=== PATIENT | female | born 1960 | race Caucasian/White ===

== ENCOUNTER 2017-03-30 12:30 | Observation (INO) | payer BC, OTHER ==
[2017-03-30 13:11] LABS: Hemoglobin 14.6 g/dL (12.0-16.0); Mean Corpuscular HGB CONC 32.7 g/dL (32.0-36.0); Mean Corpuscular Hemoglobin 30.2 pg (27.0-31.0); Mean Corpuscular Volume 92.3 fl (81.0-99.0); Mean Platelet Volume 7.5 fL (7.4-10.4); Platelet Count 258 thou/uL (130-400); RBC Distribution Width 12.7 % (11.5-14.5); Red Blood Cell (RBC) Count 4.83 mill/uL (4.20-5.40); White Blood Cell (WBC) Count 6.8 thou/uL (4.8-10.8)
--- NOTE | 2017-03-30 13:17 | RAD ---
1 VIEW CHEST: Date: 03/30/17 CLINICAL HISTORY: Cardiac palpitations, tachycardia. FINDINGS: The cardiac silhouette is accentuated by portable technique. There is no lobar consolidation, effusio n, or discrete pneumothorax. Osseous structures reveal no acute findings. IMPRESSION: No focal consolidation. POS: [facility]
[2017-03-30 13:32] LABS: ALT (SGPT) 13 U/L (8-55); AST (SGOT) 17 U/L (5-34); Alkaline Phosphatase 132 U/L (40-150); Anion Gap 12 mmol/L (10-20); BUN (Urea Nitrogen) 12 mg/dL (9.8-20.1); Bilirubin, Total 0.3 mg/dL (0.2-1.2); CK (CPK) 58 U/L (29-168); Calc. Creatinine Clearance 0 mL/min (70-130); Calcium 9.3 mg/dL (7.8-10.44); Carbon Dioxide 25 mmol/L (22-29); Chloride 104 mmol/L (98-107); Estimated GFR-MDRD 75; Globulin 3.3 g/dL (2.4-3.5); Glucose 92 mg/dL (70-105); Lipase 36 U/L (8-78); Magnesium 2.5 mg/dL (1.6-2.6); Potassium 4.3 mmol/L (3.5-5.1); Protein, Total 7.3 g/dL (6.0-8.3); Sodium 137 mmol/L (136-145)
[2017-03-30 13:33] LABS: Band 3 % (5-11); Lymphocytes 15 % (21-51); MDiff Complete? YES; Monocytes 5 % (0-10); Neutrophil 70 % (42-75); PLT Morphology Comment Appears Adequate; RBC Morphology Normal; Reactive Lymphocytes 7 % (0-10)
[2017-03-30 13:34] LABS: CKMB 1.4 ng/mL (0-6.6); Troponin I Less than 0.010 ng/mL (< 0.028)
[2017-03-30] MEDS ORDERED: Docusate 100 MG CAP PO PRN (14:59)
[2017-03-30] MEDS ORDERED: Acetaminophen 325 MG TAB PO PRN (14:59)
[2017-03-30] MEDS ORDERED: Senokot 8.6 MG TAB PO PRN (14:59)
[2017-03-30] MEDS ORDERED: Sodium Chloride 0.9% 1,000 ML IV SCH (15:15)
--- NOTE | 2017-03-30 15:23 | PDOC.FPRHP ---
- History of Present Illness Chief Complaint: chest pain History of Present Illness: This is a 56 yo f with pmhx of GERD and anxiety who presents with chest pain. Said pain occurred when she was working today. Said it felt like a stabbing pain. [place] heart palpitations. Said it radiated to her back left shoulder. Did not radiate down her arm or up her jaw. rated pain at 9. Says it lasted for a few minutes. Says she got the pain and sat down and eventually it went away. Reported having increased SOB as well during the episode. Said she had 1 other episode like this 1 week ago. Again it was a sharp stabbing pain. Pt denied any headache, dizziness, lightheadness. Denied any n/v/d/c. Pt denied any fever or chills. Denies any recent illness or cough. Pt denies any recent trauma or like she pulled a muscle. 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 Pt says she has never had anything like this before. Denies any increased stress or anxiety. Pt states that she had one other episode of palpitations while down in the ER. Pt also reports having some mild leg swelling in her R. leg recently. Denies any redness. reports having some pain. Denies any recent trauma A ED Course: Aspirin - Allergies/Adverse Reactions Allergies Allergy/AdvReac Type Severity Reaction Status Date / Time Penicillins Allergy Mild Nausea Verified 08/14/12 19:37 Sulfa (Sulfonamide Allergy Mild Verified 08/14/12 19:37 Antibiotics) - Home Medications Medication Instructions Recorded Confirmed Type Lorazepam [Ativan] 1 mg PO DAILY 08/14/12 03/30/17 History Omeprazole 20 mg PO DAILY 08/14/12 03/30/17 History Baclofen [Baclofen] 10 mg PO HS PRN 03/30/17 03/30/17 History - History PMHx:GERD PSHx: orthopedic surgery, right foot surgery for neuromas, back surgery for tumor from fall, second toe FHx: Father-CAD, Mom-Cancer, Brothe- Esophageal Cancer 23yo Social:Smokes a cigarrette 1 a month, alcohol, drug use - Review of Systems General: denies: fever/chills, weight/appetite/sleep changes, night sweats, fatigue Eyes: denies: eye pain, vision changes ENT: denies: nasal congestion, rhinorrhea Respiratory: reports: shortness of breath. denies: cough, congestion, exercise intolerance Cardiovascular: reports: chest pain, palpitation, edema. denies: paroxysmal nocturnal dyspnea, orthopnea Gastrointestinal: denies: nausea, vomiting, diarrhea, constipation, abdominal pain, GI bleeding Genitourinary: denies: incontinence, dysuria, polyuria, discharge Skin: denies: rashes, lesions, jaundice, itching Musculoskeletal: denies: pain, tenderness, stiffness, swelling, arthritis/ arthralgias Neurological: denies: numbness, syncope, seizure, weakness Psychological: reports: anxiety. denies: depression - Vital signs BP: [127/74] HR: [77] RR: [23] Tmax: [98.3] Pox: [97]% on [RA] Wt: [] - Physical Exam Constitutional: NAD, awake, alert and oriented, well developed -Constitutional: obese HEENT: normocephalic and atraumatic, PERRLA Neck: supple, no LAD, no JVD, no thyromegaly, no bruits -Chest: Very tender to palpation along the chest Heart: normal S1/S2, no murmurs/rubs/gallops, pulses present, no edema Lungs: CTAB, no respiratory distress, good air movement, no rales/rhonchi, no wheezing Abdomen: soft, non-tender, bowel sounds present, no masses/distention Musculoskeletal: normal structure, normal tone -Musculoskeletal: Pain on palpation of R. leg when squeezing it. No redness noted. No swelling noted Neurological: no focal deficit Skin: no rash/lesions Psychiatric: normal mood and affect FMR H&P: Results - Labs Result Diagrams: 03/30/17 12:54 03/30/17 12:54 Lab results: WBC 6.8 thou/uL (4.8-10.8) 03/30/17 12:54 Hgb 14.6 g/dL (12.0-16.0) 03/30/17 12:54 Hct 44.6 % (36.0-47.0) 03/30/17 12:54 MCV 92.3 fl (81.0-99.0) 03/30/17 12:54 Plt Count 258 thou/uL (130-400) 03/30/17 12:54 Band Neuts % (Manual) 3 % (5-11) L 03/30/17 12:54 Sodium 137 mmol/L (136-145) 03/30/17 12:54 Potassium 4.3 mmol/L (3.5-5.1) 03/30/17 12:54 Chloride 104 mmol/L (98-107) 03/30/17 12:54 Carbon Dioxide 25 mmol/L (22-29) 03/30/17 12:54 BUN 12 mg/dL (9.8-20.1) 03/30/17 12:54 Creatinine 0.79 mg/dL (0.6-1.1) 03/30/17 12:54 Glucose 92 mg/dL (70-105) 03/30/17 12:54 Calcium 9.3 mg/dL (7.8-10.44) 03/30/17 12:54 Total Bilirubin 0.3 mg/dL (0.2-1.2) 03/30/17 12:54 AST 17 U/L (5-34) 03/30/17 12:54 ALT 13 U/L (8-55) 03/30/17 12:54 Alkaline Phosphatase 132 U/L (40-150) 03/30/17 12:54 Creatine Kinase 58 U/L (29-168) 03/30/17 12:54 CK-MB (CK-2) 1.4 ng/mL (0-6.6) 03/30/17 12:54 B-Natriuretic Peptide 41.6 pg/mL (0-100) 03/30/17 12:54 Serum Total Protein 7.3 g/dL (6.0-8.3) 03/30/17 12:54 Albumin 4.0 g/dL (3.5-5.0) 03/30/17 12:54 Lipase 36 U/L (8-78) 03/30/17 12:54 - EKG Interpretation EKG: Normal EKG - Radiology Interpretation Chest x-ray Status: image reviewed by me, report reviewed by me (No focal consolidation) FMR H&P: A/P - Problem List (1) Chest pain Current Visit: Yes Onset Date: ~03/30/17 Status: Acute Code(s): R07.9 - CHEST PAIN, UNSPECIFIED (2) GERD (gastroesophageal reflux disease) Current Visit: Yes Status: Acute Code(s): K21.9 - GASTRO-ESOPHAGEAL REFLUX DISEASE WITHOUT ESOPHAGITIS (3) Anxiety Current Visit: Yes Status: Acute Code(s): F41.9 - ANXIETY DISORDER, UNSPECIFIED - Plan 56 yo f with pmhx gerd present with chest pain admitted for typical chest pain. Atypical Chest Pain -Pt having stabbing chest pain on exertion. Initial troponin negative. Pt had pain on palpation of chest. Likely chostochondritis. Will px tylenol PRN. May benefit from flexeril -Trend trops 2 more times. -Tele obs overnight. Will get EKG if has any more episodes palpitations -Nitro PRN, Aspirin -FLP, Mg, Phos, TSH pending -NPO@midnight. Plan for stress test in the morning. GERD -Has long hx of gerd. Continue home meds. May consider upping her omperazole to BID dosing. Pain could be GERD related. Had EGD 10-15 years ago. -Recommend get EGD outpatient -Avoid ibuprofen for pain. Anxiety -Continue home meds. Ativan PRN. Told her if nitro doesn't relieve pain, try ativan. Pain may be panic attack related. R. Leg Pain reporting increased R. Leg swelling and had pain when squeezing lower leg -will get LE us to rule out DVT FMR H&P: Upper Level - Pertinent history This is a 56yo WF w/ PMH anxiety, gerd, tobacco abuse, presents for palpitations /chest pain that started this morning around 8:00am. She states that she was carrying a heavy trash and noticed this palpitations over her Left chest and radiate to her Left back. Denies any N/V/diaphoresis, arm or jaw pain, or numbness, tingling. She's never had pain like this before. Pain lasted less than 1 minute and was sharp. She hadn't tried anything for the pain. PE: Gen: AOX4. Heart: RRR, no murmur. Lungs: CTA bilaterally Abd: Soft, non-TTP, LE: TTP RLE. No erythematous or rash or swelling noted. A/P: 1) Atypical chest pain. Will r/o ACS with stress test. CEx3. Initial CE were negative. EKG in ER was NSR without any ST elevation. CMP, CBC, Lipase, BNP normal. F/u with TSH, Phos, Stress results and if abnormal, consider cardiology consult and ECHO. Likely musckuloskeletal in origin. Will try Flexeril for pain , as well as Morphine and continue ASA. Already had ASA 324mg In ER. FLP in AM. 2) RLE pain. Will f/u with doppler US as patient states that they've noticed unilateral swelling. Possibly musckuloskeletal in orign. 3) GERD. Will start protonix. 4) Anxiety. Ativan PRN 5) Tobacco abuse. 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 Pertinent changes/additions are listed here. Attending Addendum - Attending Addendum Date/Time: 03/30/17 5152 I personally evaluated the patient and discussed the management with Simi Hernandez/ Davide Sung I agree with the History, Examination, Assessment and Plan documented above with any addition or exceptions noted below. see event note
[2017-03-30] MEDS ORDERED: Cyclobenzaprine 10 MG TAB PO PRN (15:47)
[2017-03-30] MEDS ORDERED: Cyclobenzaprine 10 MG TAB PO SCH (16:00)
[2017-03-30] MEDS ORDERED: Morphine 5 MG/ML SYRINGE SLOW IVP PRN (16:11)
[2017-03-30 16:14] VITALS: BMI 37.9
--- NOTE | 2017-03-30 16:50 | PDOC.EVN ---
Event Note - Event Note Event Note: 56 yo female brought in per EMS with new onset chest pain. Patient complains of brief Fluttering sensation on precordial region lasting few seconds. Patient had episode earlier in day and then repeated episode while lifting trash containers. She denies associated N/V/Diaphoresis she does endorse being anxious and short of breath with the episodes. No recent illness no fever cough no prior episodes of Chest pain. Patient endorses right LE swelling recently PMHX :PCP in [place], [place] Meds: prilosec for GERD ativan prn anxiety Hx: DJD takes ibuprophen prn\Allergies PCN and Sulfa Surgery: Pilonidal cyst resection 9 yo in [facility] Habits: smoke 1-2 cigarettes monthly FMHX: Father with heart failure Mother with colon CA Brother with esophageal CA ROS; see design intern note nulliparous female has undergone upper endoscopy and Screening and repeat colonoscopy Exam overweight alert NAD skin warm and dry HEENT wnl glasses Neck no JVD Heart NSR no murmur no gallop Chest tender palpation left precordium abdomen no mass non tender nl BS Ext no C/C/E tender to right calf DJD deformity hands knees Neuro non focal Assessment : Atypical Chest Pain admit to r/o cardiac etiology exam c/w costochondritis Swelling RLE with calf tenderness r/o DVT HX GERD HX DJD HX Anxiety Admit for observation, troponin trending and will consider stress testing with imaging Patient seen with Dr Hernandez and agree with plan of treatment and assessment see HX & PE Dr Hernandez for further specifics lab results
[2017-03-30 16:57] LABS: Magnesium 2.3 mg/dL (1.6-2.6); Phosphorus 3.7 mg/dL (2.3-4.7)
[2017-03-30 17:03] LABS: Troponin I Less than 0.010 ng/mL (< 0.028)
[2017-03-30 17:04] LABS: Cardiac Risk 3.5 (Less than 4.5)
[2017-03-30 19:26] LABS: Troponin I Less than 0.010 ng/mL (< 0.028)
--- NOTE | 2017-03-30 19:33 | ULT ---
ULTRASOUND WITH DOPPLER DUPLEX VENOUS LOWER EXTREMITY RIGHT 03/30/17 CPT: 65654 ICD-10-PCS: B54D HISTORY: Edema, pain. TECHNIQUE: Color flow Doppler, spectral waveform analysis of pulsed Doppler, and bailey-scale imaging with mariano kaylan and augmentation, were used to evaluate the right common femoral, femoral, popliteal, posterior tibial, and superficial femoral, veins; and the proximal portions of the profunda femoral and greater saphenous, veins. FINDINGS: Appropriate compressibility and flow within the imaged deep vein system of right lower extremity. IMPRESSION: No DVT. POS: [facility]
[2017-03-30] MEDS: Nitroglycerin 2% Ointment 1 INCH/1 GM Packet TOP SCH (20:21)
[2017-03-30] MEDS ORDERED: Lorazepam 1 MG TAB PO SCH (21:00)
[2017-03-30] MEDS ORDERED: Atorvastatin Calcium 10 MG TAB PO SCH (21:00)
[2017-03-31 05:05] LABS: Anion Gap 8 mmol/L (10-20); BUN (Urea Nitrogen) 16 mg/dL (9.8-20.1); Calc. Creatinine Clearance 129 mL/min (70-130); Calcium 9.2 mg/dL (7.8-10.44); Carbon Dioxide 28 mmol/L (22-29); Chloride 105 mmol/L (98-107); Estimated GFR-MDRD 81; Glucose 96 mg/dL (70-105); Potassium 4.3 mmol/L (3.5-5.1); Sodium 137 mmol/L (136-145)
[2017-03-31] MEDS: Nitroglycerin 2% Ointment 1 INCH/1 GM Packet TOP SCH ×2 (06:57→14:54)
--- NOTE | 2017-03-31 07:11 | PDOC.FM ---
- Subjective Subjective: No acute events overnight. No chest pain since yesterday. Describes the chest pain as substernal and sharp/palpitations, reproducible with palpation. Discussed her getting a stress test today and possible DC if normal. - Objective MAR Reviewed: Yes Vital Signs & Weight: Vital Signs (12 hours) Temp Pulse Resp BP Pulse Ox 03/31/17 03:45 97.8 F 73 18 143/71 H 96 03/30/17 19:16 97.9 F 84 16 118/59 L 95 Weight Weight 97.159 kg I&O: 03/30/17 03/31/17 04/01/17 06:59 06:59 06:59 Intake Total 956 Output Total 1300 Balance -344 Result Diagrams: 03/30/17 12:54 03/31/17 03:50 <Krista Arroyo - Last Filed: 03/31/17 10:34> - Objective Vital Signs & Weight: Vital Signs (12 hours) Temp Pulse Resp BP BP Pulse Ox 03/31/17 08:00 97.7 F 70 16 03/31/17 07:58 97.7 F 70 16 132/70 97 03/31/17 03:45 97.8 F 73 18 143/71 H 96 Weight Weight 97.159 kg I&O: 03/30/17 03/31/17 04/01/17 06:59 06:59 06:59 Intake Total 956 Output Total 1300 Balance -344 Result Diagrams: 03/30/17 12:54 03/31/17 03:50 <Lis Prescott - Last Filed: 03/31/17 11:07> Phys Exam - Physical Examination Constitutional: NAD HEENT: PERRLA, moist MMs Neck: no JVD Respiratory: no wheezing, no rales, clear to auscultation bilateral Cardiovascular: RRR, no significant murmur Gastrointestinal: soft, non-tender, no distention, positive bowel sounds Musculoskeletal: no edema, pulses present Neurological: non-focal Psychiatric: normal affect, A&O x 3 Skin: no rash <Krista Arroyo - Last Filed: 03/31/17 10:34> Dx/Plan (1) Atypical chest pain Code(s): R07.89 - OTHER CHEST PAIN Status: Acute (2) Obesity Code(s): E66.9 - OBESITY, UNSPECIFIED Status: Acute (3) Anxiety Code(s): F41.9 - ANXIETY DISORDER, UNSPECIFIED Status: Acute (4) GERD (gastroesophageal reflux disease) Code(s): K21.9 - GASTRO-ESOPHAGEAL REFLUX DISEASE WITHOUT ESOPHAGITIS Status: Acute - Plan Plan: 56 yo f with pmhx gerd present with chest pain admitted for typical chest pain. Atypical Chest Pain -Pt having stabbing chest pain on exertion. trops X3 negative. Pt had pain on palpation of chest. Likely chostochondritis. Will px tylenol PRN. May benefit from flexeril -Trend trops 2 more times. -Tele obs overnight. Will get EKG if has any more episodes palpitations -Nitro PRN, Aspirin -FLP, Mg, Phos, TSH pending -Will start a statin based on ascvd risk -Stres today. GERD -Has long hx of gerd. Continue home meds. May consider upping her omperazole to BID dosing. Pain could be GERD related. Had EGD 10-15 years ago. -Recommend get EGD outpatient Anxiety -Continue home meds. Ativan PRN. Told her if nitro doesn't relieve pain, try ativan. Pain may be panic attack related. R. Leg Pain LE US negative for a DVT Obesity-encourage diet and excercise <Krista Arroyo - Last Filed: 03/31/17 10:34> Attending Addendum - Attending Addendum Date/Time: 03/31/17 1106 I personally evaluated the patient and discussed the management with Dr. Arroyo. I agree with the History, Examination, Assessment and Plan documented above with any addition or exceptions noted below. The patient's chest pain is resolved this morning. She will go for stress test. If negative, likely d/c home. Chest pain appears musculoskeletal as pain is reproducible on palpation. Starting statin. <Lis Prescott - Last Filed: 03/31/17 11:07>
[2017-03-31] MEDS ORDERED: Aspirin 325 MG TAB PO SCH (09:00)
[2017-03-31] MEDS: Enoxaparin Sodium 40 MG/0.4 ML SYRINGE SC SCH ×2 (10:59→11:02)
--- NOTE | 2017-03-31 11:35 | NM ---
CARDIAC SPECT: CLINICAL HISTORY: 56-year-old female with chest pain, dyspnea, palpitations, and smoker. Family history of co ronary artery disease. TECHNIQUE: A stress-only myocardial perfusion scan was performed following the intravenous administration of 31 mCi technetium-99m sestamibi. Pharmacologic stress with Adenosine was monitored and interpreted by Dr Pedro Luis Carmen. FINDINGS: Homogeneous tracer distribution is seen in the myocardial segments on the post stress images. GATED SPECT LVEF: 63%. WALL MOTION EXAM: Normal. IMPRESSION: Normal post stress myocardial perfusion scan. POS: [facility]
[2017-03-31] MEDS ORDERED: Lorazepam 2 MG/ML VIAL SLOW IVP PRN (12:35)
[2017-03-31] MEDS ORDERED: Lorazepam 1 MG TAB PO PRN (12:58)
[2017-03-31] MEDS ORDERED: ADENOSINE 60 MG/20 ML VIAL ONE (12:59)
[2017-03-31 15:51] VITALS: BP 127/69; TEMP 99
--- NOTE | 2017-04-02 15:16 | DIS-2 ---
DATE OF ADMISSION: 03/30/2017 DATE OF DISCHARGE: 03/31/2017 ADMITTING RESIDENT: Roberto Hernandez M.D. ADMITTING ATTENDING: Lis Prescott M.D. DISCHARGE RESIDENT: Krista Arroyo M.D. DISCHARGE ATTENDING: Lis Prescott M.D. PROCEDURES: 1. Nuclear stress test. Normal post-stress myocardial perfusion screen. 2. Chest x-ray, no focal consolidation. 3. Vascular ultrasound. No evidence of DVT. CONSULTS: None. PRIMARY DIAGNOSES: 1. Atypical chest pain, likely costochondritis. 2. Obesity. 3. Anxiety. 4. Gastroesophageal reflux disease. DISCHARGE MEDICATIONS: 1. Aspirin 81 mg oral daily. 2. Atorvastatin 10 mg oral at bedtime. 3. Omeprazole 20 mg oral daily. 4. Lorazepam 1 mg oral daily. 5. Baclofen 10 mg oral at bedtime as needed. HISTORY OF PRESENT ILLNESS AND HOSPITAL COURSE: Jojo Cline is a 56-year- old female with a past medical history of GERD and anxiety who initially presented with chest pain. She said the pain initially started when she was working. The pain was stabbing in nature. She also felt some heart palpitations that it radiated to her back, left shoulder did not radiate down her arm or upper jaw. The pain lasted for a few minutes and she sat down and it went away. She also had some increased shortness of breath during the episode. She did have one episode like this a week ago. She denied any nausea , vomiting associated with the pain. 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 Denies increased stress or anxiety. She also reports some mild leg swelling in her right leg recently. Denied any redness. In the ER, she was given aspirin. They also did a vascular ultrasound , which was negative for DVT. She has a past medical history of GERD. Her father had CAD. Her vitals on admission were within normal limits. Her heart rate on admission showed a normal S1 and S2. No murmurs, rubs or gallops. Her lungs are clear to auscultation bilaterally. No respiratory distress. Her EKG showed normal EKG. She had a chest x-ray which did not reflect any focal consolidation. She was admitted for atypical chest pain. She was admitted to telemetry obs. Her troponins were trended and were negative and EKG was wnl. She had reproducible chest pain to palpation, which suggested a costochondritis etiology. She was provided with Tylenol p.r.n. She was given nitro p.r.n. A fasting lipid panel was ordered as well as a TSH. She was made n.p.o. at midnight and had a stress test the next day, which was normal. Her mag and phos were checked and were within normal limits. As stated above, troponins and CK-MB were negative. Her TSH was normal. Fasting lipid panel was completed and she was started on simvastatin for daily prevention of stroke and MIs. GERD: She has a long history of GERD. We continued her home medications. The atypical chest pain could be GERD related; however, seem to be more of a costochondritis picture. She did have an EGD 10-15 years ago, might be of benefit to repeat an EGD if she is having these persistent GERD symptoms despite PPI therapy. Anxiety: Her home meds were continued. Atypical chest pain may be related to anxiety and she was provided with Ativan p.r.n. Recommended further outpatient followup regarding better anxiety control. Nuclear stress test was normal, which did not suggest a cardiac etiology of her chest pain. Right leg pain and swelling: A venous Doppler ultrasound was completed, which ruled out a DVT. Recommend further outpatient workup if pain and swelling persists. There was no evidence of erythema or warmth suggesting cellulitis and as stated above, no evidence of a DVT. DISPOSITION: Stable. Discharged to home. Follow up within 1 week with primary care physician. ACTIVITY: As tolerated. DIET: Heart healthy. MTDD
--- NOTE | 2017-04-14 17:06 | EKG ---
Test Reason : Blood Pressure : / mmHG Vent. Rate : 073 BPM Atrial Rate : 073 BPM P-R Int : 128 ms QRS Dur : 090 ms QT Int : 390 ms P-R-T Axes : 071 023 012 degrees QTc Int : 429 ms Normal sinus rhythm Normal ECG Confirmed by LEVI STEVE ([id number]), story editor RADHA CAMP ([id number]) on 04/14/2017 5:05:55 PM Referred By: Confirmed By:LEVI STEVE
--- NOTE | 2017-04-16 14:07 | STRESS ---
Acquisition Time: 2017-03-31 08:48:59 Total Exercise Time: 00:04:00 Test Indications: CHEST PAIN Medications: Protocol: ADENOSINE Max HR: 103 BPM 63% of Pred: 163 BPM Max BP: 124/070 mmHG Max Work Load: 1.0 METS RESTING ECG: NORMAL SINUS RHYTHM NORMAL BP RESPONSE ECTOPY: NONE ECG STRESS: NO SIGNIFICANT CHANGES INTERPRETATION: NEGATIVE ECG/AWAIT NUCLEAR IMAGES FOR DEFINITIVE DIAGNOSIS Confirmed by DR. Aleisha HOFFMAN ([id number]), map editor UMANG REDD ([id number]) on 04/16/2017 2:06:26 PM Referred By: MD Tanya TREVINO Confirmed By:DR. Aleisha HOFFMAN
== END 2017-03-31 17:12 | disposition home or self-care (01) ==
LOC: ERS 12:30 → 2SW 15:00
PROVIDERS: ADMIT Family Medicine; ATTEND Family Medicine
DX: R07.2 Precordial pain (principal); K21.9 Gastro-esophageal reflux disease without esophagitis; F41.9 Anxiety disorder, unspecified; R22.41 Localized swelling, mass and lump, right lower limb; E66.9 Obesity, unspecified; F17.210 Nicotine dependence, cigarettes, uncomplicated; M19.90 Unspecified osteoarthritis, unspecified site; Z68.37 Body mass index [BMI] 37.0-37.9, adult; Y92.89 Other specified places as the place of occurrence of the external cause; Z79.899 Other long term (current) drug therapy; Z88.0 Allergy status to penicillin; Z88.5 Allergy status to narcotic agent; Z98.890 Other specified postprocedural states; Z82.49 Family history of ischemic heart disease and other diseases of the circulatory system
CPT/HCPCS: 36415; 71045; 78452; 80048; 80053; 80061; 82550; 82553; 83690; 83735; 83880; 84100; 84443; 84484; 85025; 93005; 93017; 94760; A9500; G0378; J0153; J1650